=== PATIENT | male | born 1975 | race Caucasian/White ===

== ENCOUNTER 2019-01-04 10:20 | Outpatient (CLI) | payer OTHER | END 2019-01-04 15:00 | disposition home or self-care (01) | LOC: LAB 10:20 | DX: J11.1 Influenza due to unidentified influenza virus with other respiratory manifestations (principal); J20.0 Acute bronchitis due to Mycoplasma pneumoniae ==

== ENCOUNTER 2020-12-31 15:46 | Emergency (ER) | payer OTHER ==
[~2020-12-31] VITALS: Ht 182.9 cm; Wt 86.2 kg
[2020-12-31] MEDS ORDERED: GLUMETZA500 MG PO (15:51)
[2020-12-31] MEDS ORDERED: ZESTRIL5 MG PO (15:51)
[2020-12-31] MEDS ORDERED: LIPITOR40 M1 PO (15:51)
== END 2020-12-31 18:21 | disposition home or self-care (01) ==
LOC: ER 15:46
DX: R20.2 Paresthesia of skin (principal); R11.2 Nausea with vomiting, unspecified; R42 Dizziness and giddiness; M62.838 Other muscle spasm